=== PATIENT | male | born 1990 | race Caucasian/White ===

== ENCOUNTER 2018-01-22 13:03 | Emergency (ER) | payer SELFPAY ==
[~2018-01-22] VITALS: Ht 170.2 cm; Wt 72.6 kg
[2018-01-22 15:37] VITALS: BP 141/89
--- NOTE | 2018-01-22 15:37 | NUR ---
Patient discharged to home in stable conditon. Written and verbal after care instructions given. Patient verbalizes understanding of instructions.pt walks in steady gait.
== END 2018-01-22 15:56 | disposition home or self-care (01) ==
LOC: ER 13:06
DX: S01.511A Laceration without foreign body of lip, initial encounter (principal); Z59.0 Homelessness; W22.8XXA Striking against or struck by other objects, initial encounter; Y93.89 Activity, other specified; Y92.89 Other specified places as the place of occurrence of the external cause; Y99.8 Other external cause status
CPT/HCPCS: 12011; 99283; A4217; A4663